=== PATIENT | male | born 1940 | race Caucasian/White ===

== ENCOUNTER → 2023-05-25 15:18 | Outpatient (REF) | payer MEDICARE, SELFPAY | LOC: DHCBC/DCA 15:18 | PROVIDERS: ATTENDING PHYSICIAN Internal Medicine Critical Care Medicine; FAMILY PHYSICIAN Family Medicine | DX: I24.9 Acute ischemic heart disease, unspecified (principal); R05.3 Chronic cough | CPT/HCPCS: 71046 ==

== ENCOUNTER 2023-08-29 13:56 | Emergency (ER) | payer MEDICARE, SELFPAY ==
[2023-08-29 13:57] VITALS: BP 162/87
--- NOTE | 2023-08-29 14:59 | ED.SKININJ ---
HPI-Injury
General
Chief Complaint: Skin Surface Trauma
Source: patient
Exam Limitations: none
Time Seen by Provider: 08/29/23 14:07
Nursing documentation reviewed up to this point in time: agreed with
Travel History
Have you had any contact with someone who has COVID-19?: No
Do you have any symptoms of coronavirus? Fever > 100 degrees, chills, cough, shortness of breath, sore throat, loss of taste or smell, muscle aches, or headache?: No
History of Present Illness-Injury
Is this injury a work related problem?: No
Is pt an associate of [facility]?: No
Initial Injury comments:
Patient states he was sitting on a cooler with wheels. Cooler rolled out from under him and he grabbed grill to prevent fallling. CUt hand on grill. Sustained large lac to web space between thumb and index, laceration to base of index finger.
Injury occurred just [employer]
Past History
Past History
ED Past Medical History: None
Review of Systems
Review of Systems
Allergies reviewed?: Yes
All Other Systems: ROS reviewed and negative except as documented in HPI and ROS
Constitutional: Reports no symptoms
Musculoskeletal: Reports no symptoms
Skin: Reports no symptoms (laceration x 2 right hand)
Neurological: Reports no symptoms
Psychiatric: Reports no symptoms
Skin Exam
Laceration
Right web space between thumb and index finger:
Length in cm: 6
Orientation: horizontal
Type of Laceration: simple
Any active bleeding?: no active bleeding
Distal skin color and temperature: normal-warm & good color
Normal distal neurovascular exam: Yes
Range of motion: full
Right Proximal Palmar Second Finger:
Length in cm: 2
Orientation: vertical
Type of Laceration: simple
Any active bleeding?: no active bleeding
Distal skin color and temperature: normal-warm & good color
Normal distal neurovascular exam: Yes
Range of motion: full
Phy Exam
General Physical Exam
General Presentation: well appearing and no apparent distress
General age: appears stated age
General Skin: warm and dry
General Habitus: normal
General Mental: alert
Musculoskeletal Exam
Musculoskeletal Exam: full ROM and neuro vasc intact
Skin Exam
Skin Exam: normal color, warm/dry and no rash
Psychiatric Exam
Psychiatric Exam: normal mood/affect
Course
Orders/Labs/Results
Orders:
Orders
08/29/23 14:57
Cephalexin Monohydrate [Keflex] 500 mg PO NOW STA
Tetanus/Diphth/Acelpertussis [Adacel] 0.5 ml IM .ONCE ONE
Vital Signs
Initial and Last Documented VS:
Initial Vital Signs
Temp Pulse Resp BP Pulse Ox
98 F 84 16 162/87 98
08/29/23 13:57 08/29/23 13:57 08/29/23 13:57 08/29/23 13:57 08/29/23 13:57
Last Documented Vital Signs
Temp Pulse Resp BP Pulse Ox
98 F 84 16 162/87 98
08/29/23 13:57 08/29/23 13:57 08/29/23 13:57 08/29/23 13:57 08/29/23 13:57
Procedures
Laceration Closure
right web space between thumb and index finger:
Status of Wound: clean
Description of Wound Edges: sharp
Preparation: cleaned with saline and cleaned with Betadine
Anesthesia: 1% Lidocaine
Revision/Debridement: routine- no revision
Wound exploration: extensive cleaning of contaminated wound
Type of Closure: single layer closure
Skin Closure Material: 5-0 prolene
Number of sutures: 12
Right Proximal Palmar Second Finger:
Status of Wound: clean
Description of Wound Edges: ragged
Preparation: cleaned with saline and cleaned with Betadine
Anesthesia: 1% Lidocaine with epi
Revision/Debridement: routine- no revision
Wound exploration: extensive cleaning of contaminated wound
Type of Closure: single layer closure
Skin Closure Material: 4-0 prolene
Number of sutures: 7
*Critical Care Note
Total Time (30-74mins, 75-104mins- exclusive of procedures): Not Applicable
ED Attending Note
-
Portions of this chart may have been created with voice recognition software.� Occasional wrong word or��sound alike� substitutions may have occurred due to the inherent limitations of voice recognition software.
Discharge Plan
Departure
Patient Disposition: Home (Routine Discharge)
Date of Disposition: 08/29/23
Time of Disposition: 14:57
Patient with high blood pressure during this ER visit?: No
Condition: Good
Covid-19: Not Applicable
Discharge Problem:
Hand laceration
Instructions: Laceration Repair With Stitches (DC)
Prescriptions:
New
cephalexin 500 mg capsule
500 mg PO BID 7 Days Qty: 14 0RF
No Action
cephalexin 500 MG capsule
500 mg PO QID Qty: 20 0RF
albuterol sulfate 90 mcg/actuation HFA aerosol inhaler
See Rx Instructions .ROUTE .COMPLEX Qty: 6.7 0RF
Rx Instructions:
2 puff inhaled Q4-6 hours PRN cough
Activity Restrictions/Additional Instructions:
Sutures can be removed in 7-10 days by your family doctor.
Interventions
Interventions:
*Risk Screen - Suicide Last Done: 08/29/23 13:57
*General Assessment Last Done: 08/29/23 13:57
*Neglect/Abuse Screening Last Done: 08/29/23 13:57
Discharge Date and Time
Print Language: CHINESE
[2023-08-29] MEDS: KEFLEX 500 MG PO (15:08)
[2023-08-29] MEDS: ADACEL 0.5 ML IM (15:09)
== END 2023-08-29 16:03 | disposition home or self-care (01) ==
LOC: EMR 13:56
PROVIDERS: EMERGENCY PHYSICIAN Emergency Medicine; FAMILY PHYSICIAN Family Medicine
DX: S61.210A Laceration without foreign body of right index finger without damage to nail, initial encounter (principal); W45.8XXA Other foreign body or object entering through skin, initial encounter; Z23 Encounter for immunization
CPT/HCPCS: 99282; 12002; 90471; 90715

== ENCOUNTER → 2023-11-17 08:44 | Outpatient (REF) | payer MEDICARE, SELFPAY ==
[2023-11-17 10:00] LABS: % Basophils 0.5 % (0-2); % Eosinophils 2.3 % (0-6); % Immature Granulocytes 0.2 % (0-0.5); % Lymphocytes 17.7 % (20.5-51.1); % Monocytes 8.1 % (1.7-9.3); % Neutrophils 71.2 % (42.2-75.2); Absolute Eosinophils 0.2 10^3/uL (0-0.7); Absolute Lymphocytes 1.2 10^3/uL (1.2-3.4); Absolute Monocytes 0.5 10^3/uL (0.1-0.6); Absolute Neutrophils 4.7 10^3/uL (1.4-6.5); Hematocrit 41.4 % (39.0-52.0); Mean Corp Hgb Conc. 33.8 g/dL (33.0-37.0); Mean Corpuscular Volume 88.8 fL (80.0-94.0); Mean Platelet Volume 11.3 fL (7.4-10.4); Nucleated Red Blood Cells % 0 % (-); Platelet Count 214 10^3/uL (130-400); Red Blood Cell Count 4.66 10^6/uL (4.70-6.10); Red Cell Dist. Width 14.2 % (11.5-14.5); White Blood Cell Count 6.6 10^3/uL (4.8-10.8)
[2023-11-17 10:17] LABS: ALT (SGPT) 20 U/L (0-50); AST (SGOT) 25 U/L (17-59); Albumin 4.1 g/dl (3.5-5.0); Alkaline Phosphatase 126 U/L (38-126); Blood Urea Nitrogen 17 mg/dl (9-20); Carbon Dioxide 29 mmol/L (22-30); Chloride 103 mmol/L (98-107); Glucose 98 mg/dl (70-99); HDL Cholesterol 43 mg/dl; LDL Cholesterol, Calculated 98 mg/dl; Potassium 3.8 mmol/L (3.5-5.1); Sodium 140 mmol/L (135-145); Total Bilirubin 1.1 mg/dl (0.2-1.3); Total Cholesterol 159 mg/dl (50-199); Total Protein 6.4 g/dl (6.3-8.2); Triglyceride 90 mg/dl (10-149); Very Low Density Lipoprotein 18 mg/dl (0-30); eGFR > 60.00
[2023-11-17 10:39] LABS: TSH Reflex To Free T4 1.27 uIU/ml (0.47-4.68)
== END ==
LOC: REG 08:44
PROVIDERS: ATTENDING PHYSICIAN Nurse Practitioner Family
DX: E78.2 Mixed hyperlipidemia (principal); I10 Essential (primary) hypertension
CPT/HCPCS: 36415; 80053; 80061; 84443; 85025

== ENCOUNTER → 2024-09-19 08:18 | Outpatient (REF) | payer MEDICARE, SELFPAY | LOC: RCS 08:18 | PROVIDERS: ATTENDING PHYSICIAN Nurse Practitioner; FAMILY PHYSICIAN Family Medicine | DX: I48.0 Paroxysmal atrial fibrillation (principal); Z95.0 Presence of cardiac pacemaker; I42.8 Other cardiomyopathies | CPT/HCPCS: 78452; 93017; A9500; J2785 ==

== ENCOUNTER 2024-10-31 06:23 | Day surgery (SDC) | payer MEDICARE, SELFPAY ==
[2024-10-31] VITALS (11 sets, daily range): BP systolic 131–160; BP diastolic 64–106; BMI 35.7
[2024-10-31] MEDS: LOW STRENGTH ASPIRIN 324 MG PO (07:44)
[2024-10-31 07:53] LABS: Hematocrit 42.8 % (39.0-52.0); Hemoglobin 14.3 g/dL (13.0-18.0); Mean Corp Hgb Conc. 33.4 g/dL (33.0-37.0); Mean Corpuscular Volume 88.2 fL (80.0-94.0); Platelet Count 190 10^3/uL (130-400); Red Cell Dist. Width 13.7 % (11.5-14.5)
[2024-10-31 08:04] LABS: Blood Urea Nitrogen 24 mg/dl (9-20); Calcium 8.8 mg/dl (8.4-10.2); Carbon Dioxide 29 mmol/L (22-30); Chloride 106 mmol/L (98-107); Estimated Creatinine Clearance 77 ml/min; Glucose 104 mg/dl (70-99); Potassium 3.8 mmol/L (3.5-5.1); Sodium 141 mmol/L (135-145); eGFR > 60.00
[2024-10-31 09:15] LABS: ACT-LR - POC 213 Seconds (116-155)
[2024-10-31 09:32] LABS: ACT-LR - POC 221 Seconds (116-155)
--- NOTE | 2024-10-31 10:13 | ITS.CL.CATH ---
[facility] - Catheterization
Cardiac Catheterization
Procedure Report:
RIGHT AND LEFT HEART STUDY
Date of Procedure: October 31, 2024
Referring: Dr. Alexandre Garsia
PROCEDURES:
1. Right heart catheterization
2. Left heart catheterization with coronary and single-plane left ventriculography
3. Hemodynamic assessment of LAD with the IFR serially measuring above the ischemic threshold
INDICATION: This is an 84-year-old gentleman with a past medical history notable for heart block, LV dysfunction, and atrial fibrillation. He has experienced an increase in dyspnea. Coronary angiography had been recommended in the past, however,
the patient has refused. A recent stress study is notable for a large fixed inferior defect with an estimated ejection fraction of 33% on the most recent Lexiscan and 30-35% by prior echocardiogram February 2023. He was recommended to undergo
coronary angiography at that time which he refused and a stress study was ordered but never completed
ACCESS: Right radial artery, 6 Malay sheath in right brachial vein, 5 Malay sheath
HEMODYNAMICS : mmHg
RA (m) : 11
RV (s/d) : 37/7, 12
PA (s/d, m) : 37/15, 25
PCWP (m) : 22
AO (s/d, m) : 158/76, 108
LV (s/d) : 161/15
LVEDP : 28
Estimated [place] Cardiac Output: 7.1 L / min and Cardiac Index: 3.1 L/ min / m-2
Systemic vascular resistance: 13.7 Wood units or 1 1093 [id number](-5)
Pulmonary vascular resistance: 0.01 Wood units or 0.8 [id number](-5)
CORONARY FINDINGS :
Dominance: Right
LEFT MAIN: Short and unobstructed
LEFT ANTERIOR DESCENDING: The LAD arises normally from the left main and runs in the interventricular groove. There is a 50% smooth proximal LAD stenosis. The mid to distal RCA has minor irregularities in the distal vessel wraps completely around
the apex supplying a significant portion of the inferior wall. Several small caliber diagonal branches arise from the mid LAD. The iFR serially measures above the ischemic threshold at 0.91, 0.92, 0.90, 0.91, and 0.91
CIRCUMFLEX: The circumflex is a medium caliber nondominant vessel giving rise to a moderate caliber bifurcating OM1 and moderate caliber OM2. The circumflex terminates in 2 small posterolateral branches.
RIGHT CORONARY ARTERY: The right coronary artery is a dominant vessel with a 30% proximal stenosis and minor irregularities are noted throughout the mid vessel. The PDA is a small to medium caliber vessel that is widely patent
VENTRICULOGRAPHY: Left ventriculography is performed in an SKY projection. At the digital single-plane left ventricular ejection fraction is visually estimated at 30-35% with global hypokinesis
SEDATION: 67 minutes of procedural sedation was utilized. An independent medical transcriptionist was present to assist with and help manage the patient's level of consciousness and physiologic status
RADIATION SUMMARY: Fluoro Time (min): 9.4, Dose (mGy): 648, DAP (Gy.cm2) : 44.1
CONCLUSIONS
1. Moderate coronary disease in the proximal LAD with the IFR serially measuring above the ischemic threshold at as described above
2. Moderate LV dysfunction with a visually estimated ejection fraction of 30-35%
RECOMMENDATIONS
1. Guideline directed medical therapy for nonischemic cardiomyopathy. He is currently on metoprolol XL and losartan at maximal dose.
2. Will start spironolactone 25 mg daily. I spoke with both the patient and regarding needs for follow-up renal profile in 2 weeks and 4 weeks after starting the spironolactone. Will continue potassium chloride but reduce to 1 tablet daily
rather than twice daily.
3. Followup as scheduled with WILLIAM Omalley
4. Increase atorvastatin from 20mg daily to 40mg daily
5. Resume Eliquis this evening
Copy to: Dr. Alexandre Garsia
== END 2024-10-31 13:48 | disposition home or self-care (01) ==
LOC: CATH 06:23
PROVIDERS: ATTENDING PHYSICIAN Internal Medicine Interventional Cardiology; FAMILY PHYSICIAN Family Medicine; OTHER PHYSICIAN Internal Medicine Cardiovascular Disease
DX: I25.10 Atherosclerotic heart disease of native coronary artery without angina pectoris (principal); I42.8 Other cardiomyopathies; I48.0 Paroxysmal atrial fibrillation; I45.9 Conduction disorder, unspecified; R94.39 Abnormal result of other cardiovascular function study; Z79.899 Other long term (current) drug therapy; Z79.01 Long term (current) use of anticoagulants
CPT/HCPCS: 93799; 99152; 99153; 80048; 85027; 85347; 93460; C1769; C1894; Q9967

== ENCOUNTER → 2024-12-09 10:35 | Outpatient (REF) | payer MEDICARE, SELFPAY ==
[2024-12-09 11:54] LABS: Blood Urea Nitrogen 23 mg/dl (9-20); Calcium 9.1 mg/dl (8.4-10.2); Carbon Dioxide 25 mmol/L (22-30); Chloride 109 mmol/L (98-107); Glucose 91 mg/dl (70-99); Potassium 4.3 mmol/L (3.5-5.1); Sodium 141 mmol/L (135-145); eGFR > 60.00
== END ==
LOC: REG 10:35
PROVIDERS: ATTENDING PHYSICIAN Nurse Practitioner; FAMILY PHYSICIAN Family Medicine
DX: I42.8 Other cardiomyopathies (principal); I10 Essential (primary) hypertension
CPT/HCPCS: 36415; 80048

== ENCOUNTER → 2025-02-10 11:44 | Outpatient (REF) | payer MEDICARE, SELFPAY ==
[2025-02-10 12:50] LABS: Hematocrit 40.2 % (39.0-52.0); Hemoglobin 13.1 g/dL (13.0-18.0); Mean Corp Hgb Conc. 32.6 g/dL (33.0-37.0); Mean Corpuscular Volume 88.0 fL (80.0-94.0); Nucleated Red Blood Cells % 0 % (-); Platelet Count 188 10^3/uL (130-400); Red Cell Dist. Width 14.5 % (11.5-14.5)
[2025-02-10 13:34] LABS: ALT (SGPT) 22 U/L (0-50); AST (SGOT) 24 U/L (17-59); Albumin 4.2 g/dl (3.5-5.0); Alkaline Phosphatase 121 U/L (38-126); Blood Urea Nitrogen 21 mg/dl (9-20); Calcium 8.3 mg/dl (8.4-10.2); Carbon Dioxide 30 mmol/L (22-30); Chloride 103 mmol/L (98-107); Glucose 89 mg/dl (70-99); HDL Cholesterol 41 mg/dl; LDL Cholesterol, Calculated 108 mg/dl; Potassium 4.1 mmol/L (3.5-5.1); Sodium 140 mmol/L (135-145); Total Protein 6.6 g/dl (6.3-8.2); Very Low Density Lipoprotein 20 mg/dl (0-30); eGFR > 60.00
[2025-02-10 14:01] LABS: PSA, Total - Screen 0.62 ng/ml (0.0-4.0)
== END ==
LOC: REG 11:44
PROVIDERS: ATTENDING PHYSICIAN Family Medicine
DX: I10 Essential (primary) hypertension (principal); K21.9 Gastro-esophageal reflux disease without esophagitis; E78.2 Mixed hyperlipidemia; I42.8 Other cardiomyopathies; Z12.5 Encounter for screening for malignant neoplasm of prostate; N40.0 Benign prostatic hyperplasia without lower urinary tract symptoms
CPT/HCPCS: 36415; 80053; 80061; 84443; 85025; G0103